=== PATIENT | male | born 1980 | race Caucasian/White ===

== ENCOUNTER 2022-02-11 08:50 | Outpatient (CLI) | payer OTHER | END 2022-02-11 09:00 | disposition home or self-care (01) | LOC: RAD 08:50 | DX: M17.0 Bilateral primary osteoarthritis of knee (principal) ==

== ENCOUNTER 2023-02-01 15:48 | Emergency (ER) | payer OTHER ==
[~2023-02-01] VITALS: Ht 167.6 cm; Wt 72.6 kg
[2023-02-01] MEDS ORDERED: PROTONIX40 MG PO (15:59)
[2023-02-01 17:25] LABS: HEMATOCRIT 41.4 % (39.0-48.0); HEMOGLOBIN 14.7 g/dL (13-16.00); MEAN CELL VOLUME 87.3 fL (80.0-100.00); MEAN CORPUSCULAR HEMOGLOBIN 30.9 pg (27.00-32.0); MEAN CORPUSCULAR HGB CONC 35.4 g/dl (32.0-36.0); PLATELET COUNT 205 K/uL (150-450); RED BLOOD COUNT 4.75 M/uL (4.00-6.00); RED CELL DISTRIBUTION WIDTH 12.8 % (11.5-14.5)
[2023-02-01 17:43] LABS: CALCIUM 9.2 mg/dL (8.5-10.1); CREATININE SERUM 0.72 mg/dL (0.70-1.30); GFR 118.59; POTASSIUM 3.49 mEq/L (3.5-5.1)
[2023-02-01 18:04] LABS: PH,URINE 6.5 (5.0-8.0); URINE APPEARANCE Clear; URINE BILIRRUBIN Negative (NEGATIVE); URINE BLOOD Negative; URINE COLOR Yellow; URINE GLUCOSE Negative (NEGATIVE); URINE LEUKOCYTE Negative; URINE NITRATE Negative; URINE PROTEIN Negative (NEGATIVE); URINE UROBILINOGEN 0.2 E.U./dl
[2023-02-01 18:23] LABS: URINE BACTERIA 2.5 uL (0.0-1933); URINE EPITHELIAL CELLS 1.2 uL (0.0-38.8); URINE RBC 7.1 uL (0.0-20.8); URINE WBC 1.8 uL (0.0-23.2)
== END 2023-02-01 20:36 | disposition home or self-care (01) ==
LOC: ER 15:48
PROVIDERS: Emergency Medicine
DX: K52.9 Noninfective gastroenteritis and colitis, unspecified (principal); Z88.6 Allergy status to analgesic agent